=== PATIENT | female | born 1955 | race Caucasian/White ===

== ENCOUNTER → 2019-04-06 | Outpatient (CLI) | payer OTHER ==
--- NOTE | 2019-04-06 16:20 | MR ---
EXAMINATION TYPE: MR brain wo/w con DATE OF EXAM: 04/06/2019 COMPARISON: None HISTORY: Headaches, blurred vision TECHNIQUE: Multiplanar, multisequence images of the brain and brainstem is performed without and with IV contras t, utilizing 7 mL intravenous Gadavist . FINDINGS: Diffusion weighted images demonstrate no evidence of a recent infarct or other diffusion ab normality. There is no extra-axial fluid collection or significant white matter signal abnormality. The ventricular system and cisternal spaces are normal in size and appearance. The brain volume is age appropriate. Midline structures demonstrate normal morphology. The craniocervical junction appears within normal limits. Post contrast images demonstrate no abnormal enhancement. The dural venous sinuses appear pa tent. The visualized sinuses are remarkable for mucosal disease present within the sphenoid sinus to the right, ethmoid air cells and the globes are intact. IMPRESSION: Sinus disease. No significant brain abnormality is evident
== END ==
LOC: RADMRIMAIN 09:28
PROVIDERS: ATTEND Internal Medicine
DX: H53.8 Other visual disturbances (principal); R51 Headache
CPT/HCPCS: 70553

== ENCOUNTER → 2019-04-13 | Outpatient (CLI) | payer OTHER ==
--- NOTE | 2019-04-14 13:20 | MM ---
Reason for exam: screening (asymptomatic). Last mammogram was performed 16 years and 4 months ago. History: Patient is postmenopausal. Physical Findings: A clinical breast exam by your physician is recommended on an annual basis and results should be correlated with mammographic findings. MG Screening Mammo w CAD Bilateral CC and MLO view(s) were taken. No prior studies available for comparison. There are scattered fibroglandular densities. No suspicious abnormality on the left. Two right upper outer quadrant focal asymmetries, one at middle depth and the second at posterior depth. ASSESSMENT: Incomplete: need additional imaging evaluation, BI-RAD 0 RECOMMENDATION: Special view mammogram of the right breast. If lesion persists on supplemental views, image directed ultrasound is recommended. [facility] will attempt to contact patient to return for supplemental views and ultrasound if indicated.
== END | disposition home or self-care (01) ==
LOC: RADMAMWWP 08:14
PROVIDERS: ATTEND Internal Medicine
DX: Z12.31 Encounter for screening mammogram for malignant neoplasm of breast (principal)
CPT/HCPCS: 77067

== ENCOUNTER → 2019-04-26 | Outpatient (CLI) | payer OTHER ==
--- NOTE | 2019-04-29 09:49 | MM ---
Reason for exam: additional evaluation requested from abnormal screening. Last mammogram was performed less than 1 month ago. History: Patient is postmenopausal. Physical Findings: Nurse did not find any significant physical abnormalities on exam. MG Work Up Mamm w CAD RT Spot compression CC, spot compression MLO, and ML view(s) were taken of the right breast. Prior study comparison: April 13, 2019, bilateral MG screening mammo w CAD. November 30, 2002, bilateral screening mammogram. There are scattered fibroglandular densities. Right upper outer quadrant focal asymmetry at middle depth persists. Ultrasound will be performed. These results were verbally communicated with the patient and result sheet given to the patient on 04/26/19. ASSESSMENT: Incomplete: need additional imaging evaluation, BI-RAD 0 RECOMMENDATION: Ultrasound of the right breast. upper outer quadrant
--- NOTE | 2019-04-29 09:51 | USB ---
Reason for exam: additional evaluation requested from abnormal screening. History: Patient is postmenopausal. US Breast Workup Limited RT Right limited breast ultrasound including focal area of concern, retroareolar and axilla demonstrates a 11 x 5 x 8mm lobular, mixed lesion at 10 o'clock possible lobules in dense tissue and a 6mm, 5mm and 10mm lymph nodes at the axilla tail, no cortical thickening. These results were verbally communicated with the patient and result sheet given to the patient on 04/26/19. ASSESSMENT: Probably benign, BI-RAD 3 RECOMMENDATION: Ultrasound of the right breast in 6 months.
== END | disposition home or self-care (01) ==
LOC: RADMAMWWP 14:44
PROVIDERS: ATTEND Internal Medicine
DX: R92.8 Other abnormal and inconclusive findings on diagnostic imaging of breast (principal)
CPT/HCPCS: 77065

== ENCOUNTER → 2021-04-24 | Outpatient (CLI) | payer OTHER ==
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
== END | disposition home or self-care (01) ==
LOC: RADBDWWP 09:56
PROVIDERS: ATTEND Internal Medicine
DX: M85.89 Other specified disorders of bone density and structure, multiple sites (principal); Z78.0 Asymptomatic menopausal state
CPT/HCPCS: 77080

== ENCOUNTER 2023-03-10 15:24 | Observation (INO) | payer MEDICARE, OTHER ==
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
[2023-03-10 16:29] LABS: Basophils # (A) 0.1 k/uL (0-0.2); Basophils % (A) 1 %; Eosinophils # (A) 0.3 k/uL (0-0.7); Eosinophils % (A) 2 %; HCT 42.4 % (34.0-46.0); HGB 14.3 gm/dL (11.4-16.0); Lymphocytes # (A) 2.8 k/uL (1.0-4.8); Lymphocytes % (A) 15 %; MCH 30.8 pg (25.0-35.0); MCHC 33.8 g/dL (31.0-37.0); MCV 90.9 fL (80.0-100.0); Mean Platelet Volume 8.8; Monocytes % (A) 6 %; Neutrophils # (A) 13.8 k/uL (1.3-7.7); Neutrophils % (A) 76 %; Platelet Count 361 k/uL (150-450); RBC 4.66 m/uL (3.80-5.40); RDW 12.9 % (11.5-15.5); WBC 18.2 k/uL (3.8-10.6)
--- NOTE | 2023-03-10 16:29 | XR ---
EXAMINATION TYPE: XR chest 2V DATE OF EXAM: 03/10/2023 4:22 PM COMPARISON: None TECHNIQUE: XR chest 2V Frontal and lateral views of the chest. CLINICAL INDICATION:Female, 67 years old with history of chest pain; FINDINGS: Lungs/Pleura: There is no evidence of pleural effusion, focal consolidation, or pneumothorax. Pulmonary vascularity: Unremarkable. Heart/mediastinum: Cardiomediastinal silhouette is unremarkable. Musculoskeletal: No acute osseous pathology. IMPRESSION: No acute cardiopulmonary disease/process.
[2023-03-10 16:41] LABS: INR 0.9 (<1.2)
[2023-03-10 16:42] LABS: ALT 17 U/L (4-34); AST 27 U/L (14-36); African American GFR (CKD) >90 (>60 ml/min/1.73 sqM); Albumin 4.3 g/dL (3.5-5.0); Alkaline Phosphatase 90 U/L (38-126); Anion Gap 11 mmol/L; Blood Urea Nitrogen 22 mg/dL (7-17); Calcium 9.8 mg/dL (8.4-10.2); Carbon Dioxide 21 mmol/L (22-30); Chloride 106 mmol/L (98-107); Glucose 94 mg/dL (74-99); Magnesium 1.9 mg/dL (1.6-2.3); Non-African American GFR(CKD) 85 (>60 ml/min/1.73 sqM); Partial Thromboplastin Time 24.6 sec (22.0-30.0); Potassium 4.2 mmol/L (3.5-5.1); Prothrombin Time 10.4 sec (10.0-12.5); Sodium 138 mmol/L (137-145); Total Bilirubin 0.6 mg/dL (0.2-1.3); Total Protein 7.4 g/dL (6.3-8.2)
[2023-03-10] MEDS ORDERED: NALOXONE 0.4 MG/ML 1 ML VIAL IV PRN (17:55)
[2023-03-10] MEDS ORDERED: ASPIRIN 81 MG PO STA (17:56)
[2023-03-10 18:39] LABS: Appearance,Urine Clear (Clear); Bilirubin,Urine Negative (Negative); Blood,Urine Negative (Negative); Color,Urine Colorless; Glucose,Urine (UA) Negative (Negative); Ketones,Urine Negative (Negative); Leukocyte Esterase,Urine Negative (Negative); Nitrite,Urine Negative (Negative); PH, Urine 5.5 (5.0-8.0); Protein,Urine Negative (Negative); Specific Gravity,Urine 1.012 (1.001-1.035); Urobilinogen,Urine <2.0 mg/dL (<2.0)
[2023-03-10] MEDS: ALPRAZolam 0.5 MG TAB PO PRN (20:00)
[2023-03-10] MEDS ORDERED: ASCORBIC ACID 500 MG TAB PO SCH (21:15)
[2023-03-10] MEDS ORDERED: ATORVASTATIN 20 MG TAB PO SCH (21:15)
[2023-03-11] MEDS: ALPRAZolam 0.5 MG TAB PO PRN ×2 (03:37→09:18)
[2023-03-11] MEDS ORDERED: METOPROLOL SUCCINATE (ER) 25 MG TAB.ER.24H PO SCH (09:00)
[2023-03-11] MEDS ORDERED: amLODIPine 5 MG TAB PO SCH (09:00)
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
[2023-03-11 09:39] LABS: Basophils # (A) 0.16 X 10*3/uL (0.00-0.10); Basophils % (A) 1.6 %; Eosinophils # (A) 0.49 X 10*3/uL (0.04-0.35); Eosinophils % (A) 4.9 %; HCT 40.9 % (37.2-46.3); HGB 13.7 g/dL (12.0-15.0); Lymphocytes # (A) 4.14 X 10*3/uL (0.90-5.00); Lymphocytes % (A) 41.3 %; MCH 30.2 pg (27.0-32.0); MCHC 33.5 g/dL (32.0-37.0); MCV 90.1 FL (80.0-97.0); Mean Platelet Volume 11.7 FL (9.5-12.2); Monocytes # (A) 1.21 X 10*3/uL (0.20-1.00); Monocytes % (A) 12.1 %; NRBC Per 100 WBC 0 X 10*3/uL (0.00-0.01); Neutrophils # (A) 4.01 X 10*3/uL (1.80-7.70); Neutrophils % (A) 39.9 %; Platelet Count 427 X 10*3/uL (140-440); RBC 4.54 X 10*6/uL (4.10-5.20); RDW 13.3 % (11.5-14.5); WBC 10.03 X 10*3/uL (4.50-10.00)
[2023-03-11 09:42] LABS: Blood Urea Nitrogen 16.4 mg/dL (9.0-27.0); Carbon Dioxide 23.4 mmol/L (21.6-31.8); Chloride 107 mmol/L (96-109); Glucose 84 mg/dL (70-110); Potassium 4.6 mmol/L (3.5-5.5); Sodium 140 mmol/L (135-145)
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
--- NOTE | 2023-03-11 11:26 | CA ---
Transthoracic Echo Report Name: Hellen Hollins Age: 67 Gender: F : 1955 Exam Date: 03/11/2023 10:20 Exam Location: [facility] Ht (in): 65 Wt (lb): 140 Ordering Physician: Candy Velázquez Attending/Referring Phys: [id number], Melania Client Engagement Manager Teresa Myles [facility] Procedure CPT: Indications: LVF Cardiac Hx: Technical Quality: Fair Contrast 1: Total Dose (mL): Contrast 2: Total Dose (mL): MEASUREMENTS (Male / Female) Normal Values 2D ECHO LV Diastolic Diameter PLAX 3.5 cm 4.2 - 5.9 / 3.9 - 5.3 cm LV Systolic Diameter PLAX 2.4 cm IVS Diastolic Thickness 0.9 cm 0.6 - 1.0 / 0.6 - 0.9 cm LVPW Diastolic Thickness 1.0 cm 0.6 - 1.0 / 0.6 - 0.9 cm LV Relative Wall Thickness 0.5 LVOT Diameter 2.0 cm Ascending Aorta Diameter 3.1 cm M-MODE Aortic Root Diameter MM 2.2 cm LA Systolic Diameter MM 2.8 cm LA Ao Ratio MM 1.2 AV Cusp Separation MM 1.7 cm DOPPLER AV Peak Velocity 116.3 cm/s AV Peak Gradient 5.4 mmHg AV Mean Velocity 87.3 cm/s AV Mean Gradient 3.3 mmHg AV Velocity Time Integral 23.8 cm LVOT Peak Velocity 92.2 cm/s LVOT Peak Gradient 3.4 mmHg LVOT Velocity Time Integral 17.9 cm LVOT Stroke Volume 57.4 cm??? LVOT Stroke Volume Index 33.8 ml/m??? LVOT Cardiac Index 2817.1 cm???/min???m??? AV Area Cont Eq vti 2.4 cm??? AV Area Cont Eq pk 2.5 cm??? Mitral E Point Velocity 54.6 cm/s Mitral A Point Velocity 97.7 cm/s Mitral E to A Ratio 0.6 MV Deceleration Time 205.4 ms LV E' Lateral Velocity 10.9 cm/s Mitral E to LV E' Lateral Ratio 5.0 LV E' Septal Velocity 8.2 cm/s Mitral E to LV E' Septal Ratio 6.6 Right Atrial Pressure 3.0 mmHg FINDINGS Left Ventricle Left ventricular wall thickness at upper limits of normal. Normal left ventricular wall motion. Normal left ventricular systolic function with no obvious regional wall motion abnormalities. Left ventricular ejection fraction is estimated at 55-60%. Right Ventricle Normal right ventricular size. Right Atrium Normal right atrial size. Left Atrium Normal left atrial size. Mitral Valve Structurally normal mitral valve. Trace mitral regurgitation. Aortic Valve Aortic valve not well visualized. Thickening of the aortic valve cusps. No aortic valve stenosis or regurgitation. Tricuspid Valve Structurally normal tricuspid valve. No tricuspid regurgitation. Pulmonic Valve Pulmonic valve not well visualized. Pericardium No significant pericardial effusion probable fat pad Aorta Normal size aortic root and proximal ascending aorta. CONCLUSIONS Normal LV size and systolic function. Aortic valve sclerosis without restriction. Mild mitral and tricuspid regurgitation. No pericardial effusion. No significant pulmonary hypertension but right-sided pressures are not well quantified Previewed by: Dr. Mainor Barahona MD (Electronically Signed) Final Date: 11 March 2023 11:25
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
--- NOTE | 2023-03-11 14:44 | P.DS ---
Providers Date of admission: 03/10/23 17:55 Expected date of discharge: 03/11/23 Attending physician: Evette Vega Consults: 03/10/23 17:55 Consult Physician Urgent Consulting Provider: [facility] Consult Reason/Comments: acute chest pain Do you want consulting provider notified?: Yes Primary care physician: Evette Silvia [facility] Course: Diagnosis on discharge: Hellen Hollins, is a 67-year-old female patient who presented with concerns of chest tightness, high anxiety and elevated blood pressure. Patient reports that she's had high doses of anxiety and she believes this contributed to her symptoms that started yesterday. Patient has a past medical history of asthma, liver disease. Chest x-ray was completed showing no acute cardiopulmonary disease. EKG completed showing sinus rhythm with occasional ventricular premature complexes. White blood cell elevated at 18.2. Patient denies any recent illness. UA was negative. Troponins negative 3. This time cardiology services have been consulted 2-D echo has been ordered. Regards to leukocytosis. We'll hold order COVID-19 and repeat lab. Current vital signs temp 97.8, heart rate 98, respiratory rate 17, blood pressure 118/65 and pulse ox 98% on room air. Upon exam patient is tearful Xanax added. Patient denies chest pain or shortness of breath. Patient denies nausea vomiting or diarrhea. Patient denies any urinary burning or frequency On 03/11/2023 patient was seen and examined on the telemetry floor she is alert and oriented 3 in no apparent distress there is no fever or chills no headache or dizziness no new episodes of chest pain or chest tightness no shortness of breath no cough no nausea or vomiting no abdominal pain no diarrhea and no uri nary symptoms. Patient was evaluated by cardiology and was started on metoprolol and amlodipine, blood pressure improved, repeat white blood count is down to 10.8 down from 18 yesterday, chest x-ray urine analysis and Covid testing are old within normal limits, echocardiogram was done and was within normal limits, patient was cleared for discharge by cardiology, she will be followed in our office within 1 week. Hospital course: 1. Chest tightness and shortness of breath 2. Anxiety. Xanax added 3. Leukocytosis. Chest x-ray negative UA negative. COVID-19 ordered repeat lab order 4. History of hepatitis 5. History of asthma 6. History of herniated disc 7. Essential hypertension Patient Condition at Discharge: Stable Plan - Discharge Summary Discharge Rx Participant: Yes New Discharge Prescriptions: New Mirtazapine [Remeron] 15 mg PO HS 30 Days #30 tab amLODIPine [Norvasc] 5 mg PO DAILY 30 Days #30 tab Metoprolol Succinate (ER) [Toprol XL] 25 mg PO DAILY 30 Days #30 tab Continue Ascorbic Acid [Vitamin C] 1,000 mg PO HS Rosuvastatin [Crestor] 10 mg PO HS Discharge Medication List Ascorbic Acid [Vitamin C] 1,000 mg PO HS 03/10/23 [History] Rosuvastatin [Crestor] 10 mg PO HS 03/10/23 [History] Metoprolol Succinate (ER) [Toprol XL] 25 mg PO DAILY 30 Days #30 tab 03/11/23 [Rx] Mirtazapine [Remeron] 15 mg PO HS 30 Days #30 tab 03/11/23 [Rx] amLODIPine [Norvasc] 5 mg PO DAILY 30 Days #30 tab 03/11/23 [Rx] Follow up Appointment(s)/Referral(s): Mainor Barahona MD [STAFF PHYSICIAN] - 3 Weeks Evette Vega MD [Primary Care Provider] - 1-2 days
[2023-03-11 14:54] VITALS: BP 147/76; PULSE 97; RESP 20; TEMP 98.3
== END 2023-03-11 15:16 ==
LOC: EC 15:24 → 6NMEDSUR 17:55
PROVIDERS: ADMIT Internal Medicine; ATTEND Internal Medicine
DX: R07.2 Precordial pain (principal); R06.02 Shortness of breath; D72.829 Elevated white blood cell count, unspecified; I10 Essential (primary) hypertension; J45.909 Unspecified asthma, uncomplicated; F41.9 Anxiety disorder, unspecified; Z86.19 Personal history of other infectious and parasitic diseases; Z20.822 Contact with and (suspected) exposure to COVID-19; Z87.39 Personal history of other diseases of the musculoskeletal system and connective tissue; Z87.891 Personal history of nicotine dependence; Z79.899 Other long term (current) drug therapy; Z88.5 Allergy status to narcotic agent; Z82.49 Family history of ischemic heart disease and other diseases of the circulatory system
CPT/HCPCS: 99285; 36415; 93005; 93306; 80053; 80048; 84443; 83735; 84484; 85025 ×2; 85610; 85730; 81003; 87635; 71046; G0378 ×2

== ENCOUNTER → 2023-12-16 | Outpatient (CLI) | payer MEDICARE, OTHER ==
--- NOTE | 2024-01-02 20:48 | MM ---
Reason for Exam: Screening (asymptomatic). Last mammogram was performed 4 year(s) and 8 month(s) ago. Patient History: Menarche at age 16. First Full-Term at age 26. Postmenopausal. Patient has history of breast feeding. Risk Values: Dyan 5 year model risk: 1.7%. NCI Lifetime model risk: 5.9%. Prior Study Comparison: 11/30/2002 Bilateral Screening Mammogram, [facility]. 04/13/2019 Bilateral Screening Mammogram, [facility]. 04/26/2019 Right Diagnostic Mammogram, [facility]. Tissue Density: There are scattered areas of fibroglandular density. Findings: Analyzed By CAD. Chronic nodularity on the right. There is no suspicious group of microcalcifications or new suspicious mass in either breast. Overall Assessment: Benign, BI-RAD 2 Management: Screening Mammogram of both breasts in 1 year. . Patient should continue monthly self-breast exams. A clinical breast exam by your physician is recommended on an annual basis. This exam should not preclude additional follow-up of suspicious palpable abnormalities. Note on Dyan scores and lifetime risk: 1. A Dyan score greater than 3% is considered moderate risk. If this is the case, consider specialist referral to assess eligibility for a risk reducing agent. 2. If overall lifetime risk for the development of breast cancer is 20% or higher, the patient may qualify for future screening with alternating mammogram and breast MRI. Electronically signed and approved by: Ebonie Rodgers M.D. Radiologist
== END | disposition home or self-care (01) ==
LOC: RADMAMWWP 16:14
PROVIDERS: ATTEND Internal Medicine
DX: N63.20 Unspecified lump in the left breast, unspecified quadrant (principal); Z12.31 Encounter for screening mammogram for malignant neoplasm of breast; Z78.0 Asymptomatic menopausal state; R92.323 Mammographic fibroglandular density, bilateral breasts
CPT/HCPCS: 77063; 77067